=== PATIENT | female | born 1990 | race African-American/Black ===

== ENCOUNTER 2017-12-07 07:49 | Day surgery (SDC) | payer OTHER ==
[2017-12-07] MEDS ORDERED: Ringers Lactate 1,000 ML IV ONE ×4 (08:19→13:48)
[2017-12-07] MEDS ORDERED: CEFAZOLIN/SWI 1gm 1 GM/10 ML SYR ONE (08:19)
[2017-12-07] MEDS ORDERED: SCOPOLAMINE HYDROBROMIDE PATCH TD ONE (08:19)
[2017-12-07] MEDS ORDERED: CEFAZOLIN SODIUM 1 GM/VIAL ONE (08:25)
[2017-12-07] MEDS ORDERED: NS 0.9% VIAL 20 ML ONE (08:25)
[2017-12-07] MEDS ORDERED: Mastisol Adhesive Liq ONE (08:25)
[2017-12-07] MEDS ORDERED: GENTAMICIN SULF 80 MG/2ML INJ ONE (08:25)
[2017-12-07 08:26] LABS: Specific Gravity 1.015 (1.005-1.030)
[2017-12-07] MEDS ORDERED: BACITRACIN 50000 UNIT VIAL ONE (08:26)
[2017-12-07] MEDS ORDERED: LIDOCAINE 2% MPF 5 ML VIAL ONE (09:51)
[2017-12-07] MEDS ORDERED: PROPOFOL 200 MG/20 ML VIAL IV ONE (09:51)
[2017-12-07] MEDS ORDERED: ONDANSETRON 4 MG/2 ML VIAL ONE (09:51)
[2017-12-07] MEDS ORDERED: MIDAZOLAM HCL 2 MG/2 ML INJ ONE (09:51)
[2017-12-07] MEDS ORDERED: FENTANYL CITR 100 MCG/2 ML ONE ×2 (09:51→11:40)
[2017-12-07] MEDS ORDERED: ROCURONIUM 50 MG/5 ML VIAL IV ONE (09:51)
[2017-12-07] MEDS ORDERED: LANO/MINERAL OIL/PETRO 3.5 GM ONE (10:02)
[2017-12-07] MEDS ORDERED: DEXAMETHASONE 10 MG/ML VIAL ONE (10:12)
[2017-12-07] MEDS ORDERED: Phenylephrine HCl 10 MG/ML 1 ML VIAL ONE (11:26)
[2017-12-07] MEDS ORDERED: KETOROLAC 30 MG/ML INJ ONE (13:47)
[2017-12-07] MEDS ORDERED: MEPERIDINE HCL 25 MG/0.5 ML ONE (13:47)
[2017-12-07] MEDS: MORPHINE 4 MG/ML SYR ONE ×2 (14:32→14:38)
[2017-12-07] MEDS ORDERED: CODEINE 30MG/APAP 300MG TAB ONE (15:46)
--- NOTE | 2017-12-08 02:16 | OP ---
Surgeon: Armen Gallegos MD Refrigeration Repair Supervisor: James. Preoperative Diagnosis: Breast descent. Postoperative Diagnosis: Breast descent. Procedure Performed: Lift. Anesthesia: General. Procedure In Detail: After satisfactory induction of general anesthesia, chest was prepped with Dura Prep and dry sterile drapes were applied in the usual manner. A 38 template used to outline the righ t areola. Then, a transverse curvilinear incisions were made. The intervening skin was de-epithelia lized with dermabrader and EpiCut. A transverse incision was made with electrocautery. Flap was thi nned to 1 cm. Flap elevation continued towards the sternum, clavicle, anterior axillary line. Then, the inferior incision was made. Retropectoral dissection was performed and then the de-epithelializ ed flap was formed into a cone with 2-0 PDS. Left side done in mirror image manner. We then elevate d straps at the 12 o'clock, at athe 1:30 position, and 3 o'clock in the right breast from the base of the cone. Straps were then woven in and out the pectoralis major and back to the base of the cone, back to pec major and back to base of cone, and tied with several 2-0 PDS. A 3 o'clock strap was sew n over the sternum at 3 o'clock position with 2-0 Ethibond. Left side done in an identical manner. We then sat the patient up, compared sides for asymmetry, and placed the patient back down and then d ebrided excess skin and breast tissue as needed to round the breast. The wound was then closed after irrigating the wound with antibiotic solution. A EMMA drain was brought out the axilla and sewn in pl amilcar with 2-0 silk and then the wound closed with 3-0 Vicryl subcu, 3-0 PDS running subcuticular tied in the vertical meridian of the breast. Both sides were done identically. The patient was sat up. Site for new nipple-areolar complex was marked out. The intervening skin was excised using 38 templa te and nipple was delivered and sewn with interrupted 4-0 PDS followed by 4-0 PDS in running subcutic ular. Dressings of tincture of benzoin, Steri-Strips, 5x5s, fluffs, and Amilcar wrap. The patient justin ated the procedure well and returned to recovery room. GH/DEBBY Voice ID: [id number] Report ID: [id number]
== END 2017-12-07 16:58 | disposition home or self-care (01) ==
LOC: OR 07:49
PROVIDERS: ATTEND Specialist
PROC: 0H0V0ZZ Alteration of Bilateral Breast, Open Approach (ICD-10-PCS; principal; 2017-12-07 09:00)
DX: N64.81 Ptosis of breast (principal)
CPT/HCPCS: 81025; 88305; J0690; J1100; J1580; J2175; J2250; J2370; J2405; J3010